=== PATIENT | female | born 2000 | race Two or more races ===

== ENCOUNTER 2022-01-12 07:47 | Inpatient (IN) | payer OTHER ==
[~2022-01-12] VITALS: Ht 162.6 cm; Wt 2.3 kg
== END 2022-01-16 13:28 | disposition home or self-care (01) | DRG 786 ==
LOC: OBS/DEL 07:47 → LDR 01-13 08:48 → OBS/DEL 01-13 08:48 → OB/GYN 01-13 08:48
PROVIDERS: ADMIT Obstetrics & Gynecology; ATTEND Obstetrics & Gynecology
PROC: 4A1HXCZ Monitoring of Products of Conception, Cardiac Rate, External Approach (ICD-10-PCS; 2022-01-13)
PROC: 10D00Z1 Extraction of Products of Conception, Low, Open Approach (ICD-10-PCS; principal; 2022-01-13 09:00)
DX: O76 Abnormality in fetal heart rate and rhythm complicating labor and delivery (principal); O60.14X0 Preterm labor third trimester with preterm delivery third trimester, not applicable or unspecified; Z3A.35 35 weeks gestation of pregnancy; Z37.0 Single live birth; Z20.822 Contact with and (suspected) exposure to COVID-19

== ENCOUNTER 2023-07-18 19:50 | Emergency (ER) | payer OTHER ==
[~2023-07-18] VITALS: Ht 162.6 cm; Wt 78.0 kg
[2023-07-18] MEDS ORDERED: ONDANSETRON HCL 2 MG/ML VIAL IM ONE (21:00)
[2023-07-18] MEDS ORDERED: SUMATRIPTAN SUCCINATE 6 MG/0.5 ML VIAL SUBCUTANEO ONE (21:00)
[2023-07-18] MEDS ORDERED: DEXAMETHASONE SODIUM PHOSPHATE 4 MG/ML VIAL IM ONE (22:45)
[2023-07-18] MEDS ORDERED: KETOROLAC TROMETHAMINE 60 MG VIAL IM ONE (22:45)
== END 2023-07-18 22:56 | disposition home or self-care (01) ==
LOC: ER 19:50
DX: G43.801 Other migraine, not intractable, with status migrainosus (principal); K29.70 Gastritis, unspecified, without bleeding